=== PATIENT | female | born 1985 | race Native Hawaiian/Other Pacific Islander ===

== ENCOUNTER 2023-01-01 11:27 | Outpatient (AMB) | payer OTHER, SELFPAY ==
--- NOTE | 2023-01-01 11:42 | A.OFFPC_ITS ---
Vital Signs 01/01/23 11:44 Height 5 ft 1 in Weight 201 lb 8 oz BMI 38.1 BP 140/80 H Blood Pressure Location Lt brachial Position Sitting Pulse 86 Pulse Source Pulse Oximeter Pulse Oximetry (%) 98 Intake Visit Reasons: pt discharged from [facility], , high BP Intake Note: pt is here for f/u on high bood pressure readings, was seen at [facility] patient is , patient had blood work done today prior to visit. patient also would like for ears to be checked, states she been having issues and pain in both ears Materials Scheduler Required: No Accompanied by: Self / Same As Patient Allergies No Known Allergies Allergy (Verified 01/01/23 11:42) Tobacco use date assessed: 01/01/23 Dental Screening Dental Screen Date: 01/01/23 Did you have a dental visit in the last 12 months?: Yes Did you have a dental problem in the last 6 months where you did not have access to dental care?: No Was dental information given to patient?: Patient has dentist HPI HPI Comments History of Present Illness Details 37-year-old female past medical history significant for hypertension. Patient of Dr. Muro last seen few years. Patient presents today for ER follow-up from [facility] for elevated blood pressure in the 150s stock likely in a positive HCG 686. Patient was restarted on her labetalol 100 mg b.i.d. she was on in the past however she states she ran out out of at home while ago. Patient currently following with [facility], was prescribed pre- sunil vitmains just has to pick them up at the pharmacy. Blood pressure remains elevated today 140/80. Patient denies any headaches, vision changes. Denies chest pain, palpitations shortness of breath syncope. [facility] Surgical History (Updated 01/01/23 @ 11:47 by Gilbert Vargas CMA) Hx of section Family History (Updated 01/01/23 @ 11:48 by Gilbert Vargas CMA) Father Alzheimer disease Mother Heart problem High blood pressure Social History (Updated 01/01/23 @ 11:48 by Gilbert Vargas CMA) Housing: House Alcohol intake: never Patient Tobacco Use Status: Never used Tobacco Tobacco use type: Cigarette e-Cigarette/Vaping Use: Never Used service: No Current occupational status: unemployed Current occupational exposures/hazards: No Cognitive needs: No Hearing needs: No Vision needs: No Review of Systems Const Denies chills, Denies fatigue, Denies fever(s) and Denies poor appetite Eyes Denies no additional complaints ENT Reports Normal hearing present Card Denies chest pain, Denies syncope, Denies rapid heart rate and Denies dyspnea Resp Denies cough and Denies dyspnea GI Denies change in stool character, Denies constipation, Denies diarrhea, Denies nausea and Denies vomiting Denies urinary frequency, Denies dysuria and Denies urinary urgency Neuro Reports Normal hearing present, Denies confusion and Denies syncope Psych Denies confusion Endo Denies fatigue Physical exam (Primary Care) Vital Signs: Last Vital Signs Pulse 86 01/01/23 11:44 BP 140/80 H 01/01/23 11:44 Pulse Ox 98 01/01/23 11:44 BMI result Body Mass Index 38.1 Tobacco/Smoking Status: Tobacco use Status Tobacco use date assessed 01/01/23 01/01/23 11:51 Patient Tobacco Use Status Never used Tobacco 01/01/23 11:51 Tobacco use type Cigarette 01/01/23 11:51 e-Cigarette/Vaping Use Never Used 01/01/23 11:51 Const General: No confusion Orientation/consciousness: No confusion Neuro General: No confusion Cranial nerves: Yes Normal hearing present Assessment and Plan Assessment & Plan (1) Hypertension: Code(s): I10 - Essential (primary) hypertension Plan: Continue on labetalol 100 mg b.i.d.. Refill sent to patient's pharmacy for this Patient advised to follow low-salt diet and exercise Follow-up in 3 months for blood pressure recheck. Signs and symptoms of elevated blood pressure review with patient. 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 Eight a well-balanced diet and drink plenty of water. Continue to follow with [facility] Medications: New labetalol 100 mg PO BID 60 tabs 3RF I10 - Essential (primary) hypertension Coding Level of Care Code Est Pt Level 3 (20756) Diagnoses Hypertension I10 Z34.90
[2023-01-01 11:44] VITALS: BP 140/80; PULSE 86; O2SAT 98; BMI 38.1
== END 2023-01-01 12:19 | disposition home or self-care (01) ==
PROVIDERS: PCP Internal Medicine; Visit Provider Nurse Practitioner Family
DX: I10 Essential (primary) hypertension (principal); Z33.1 Pregnant state, incidental
CPT/HCPCS: 99213

== ENCOUNTER 2023-05-21 15:32 | Outpatient (AMB) | payer OTHER, SELFPAY ==
[2023-05-21 15:36] VITALS: BP 146/82; PULSE 110; O2SAT 97; BMI 41.6
--- NOTE | 2023-05-21 15:36 | MHC.PC.OV ---
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, + NEEDS PHQ9+THRIVE Water Conservation Specialist Required: No Allergies No Known Allergies Allergy (Verified 05/21/23 15:52) Medication List - Last Reconciled 05/21/23 [address] DRALIN Escalera labetalol 100 mg PO BID -yfin fum-folic ac-om3 28 mg iron- 800 mcg (One A Day Women's DHA) pkgs PO Tobacco use date assessed: 05/21/23 Dental Screening Dental Screen Date: 05/21/23 Did you have a dental visit in the last 12 months?: No Did you have a dental problem in the last 6 months where you did not have access to dental care?: No HPI 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 Muro, patient also saw WILDLAND FIRE OPERATIONS SPECIALIST in the office couple months ago for hospital discharge follow-up. Medical history significant for hypertension, currently -26 weeks with baby boy-followed by [facility] - due date 09/01/2023, gestational diabetes- monitoring blood sugars at home-currently not on insulin - see air conditioning insulation installer. No shortness of breath or chest pain. Denies concerns. PFSH Surgical History Hx of section Family History Father Alzheimer disease Mother Heart problem High blood pressure Social History Housing: House Alcohol intake: never Patient Tobacco Use Status: Never used Tobacco Tobacco use type: Cigarette e-Cigarette/Vaping Use: Never Used service: No Current occupational status: unemployed Current occupational exposures/hazards: No Cognitive needs: No Hearing needs: No Vision needs: No Questionnaire PHQ-9 Over the last 2 weeks, how often have you been bothered by any of the following problems? 1. Little interest or pleasure in doing things: not at all 2. Feeling down, depressed, or hopeless: not at all 3. Trouble falling or staying asleep, or sleeping too much: not at all 4. Feeling tired or having little energy: not at all 5. Poor appetite or overeating: not at all 6. Feeling bad about yourself - or that you are a failure or have let yourself or your family down: not at all 7. Trouble concentrating on things, such as reading the newspaper or watching television: not at all 8. Moving or speaking so slowly that other people could have noticed. Or the opposite - being so fidgety or restless that you have been moving around a lot more than usual: not at all 9. Thoughts that you would be better off or of hurting yourself in some way: not at all Total score: 0 Depression Screening Interpretation: Negative Depression Screening Done: Yes 85403 - PHQ-9 Billing: Yes Source: Developed by Drs. Silvestre Meier, Julieta Sapp, Ran Bolivar and colleagues, with an educational ismael from [employer]. Thrive Questionnaire Date Thrive assessed: 05/21/23 I am a: Patient What is your living situation today?: I have a steady place to live Within the past 12 months, did the food you bought not last and you didn't have the money to get more?: Never true Within the past 12 months, did you worry whether your food would run out before you got money to buy more?: Never true Do you have trouble paying for medicines?: No Do you have trouble getting transportation to medical appointments?: No Do you have trouble paying your heating and electricity bill?: No Do you have trouble taking care of your child, family member or friend?: No Do you have trouble with day-to-day activities such as bathing, preparing meals, shopping, managing finances, etc.?: No Are you currently unemployed and looking for a job?: No Are you interested in more education?: No Currently or been in a relationship where the following occur: no concerns reported AUDIT C Alcohol Use Questionnaire (AUDIT-C) 1. How often do you have a drink containing alcohol?: Never 3. How often do you have six or more drinks on one occasion?: Never Total Score: 0 Score Reviewed/Action Taken: No ENZO-7 AMB Questionnaire ENZO-7 Date ENZO - 7 assessed: 05/21/23 Feeling nervous, anxious, or on edge: 0 = Not at all Not being able to stop or control worryin = Not at all Worrying too much about different things: 0 = Not at all Trouble relaxin = Not at all Being so restless that it is hard to sit still: 0 = Not at all Becoming easily annoyed or irritable: 0 = Not at all Feeling afraid as if something awful might happen: 0 = Not at all Total ENZO-7 score (0-4 normal; 5-9 mild; 10-14 moderate; 15-21 severe): 0 Source: Developed by Drs. Silvestre Meier, Julieta Sapp, Ran Bolivar and colleagues, with an educational ismael from [employer]. ENZO-7 Assessment Billing ENZO-7 Assessment Tool: ENZO-7 Assessment 06275 Review of Systems Const Denies body aches, Denies chills, Denies fever(s) and Denies headache(s) Eyes Denies change in vision ENT Denies dizziness, Denies otalgia, Denies headache(s), Denies nasal discharge, Denies sinus pain and Denies sore throat Card Denies chest pain, Denies edema, Denies lightheadedness and Denies dyspnea Resp Denies cough, Denies dyspnea and Denies wheezing GI Denies abdominal pain, Denies constipation, Denies diarrhea, Denies nausea and Denies vomiting Denies dysuria Musc Denies myalgias Skin/Breast Denies rash Neuro Denies dizziness and Denies headache(s) Aller/Immun Denies wheezing Physical exam (Primary Care) Vital Signs: Last Vital Signs Pulse 104 H 05/21/23 16:01 BP 136/82 05/21/23 16:01 Pulse Ox 97 05/21/23 15:36 Oxygen Delivery Method Room Air 05/21/23 15:36 BMI result Body Mass Index 41.6 Tobacco/Smoking Status: Tobacco use Status Tobacco use date assessed 05/21/23 05/21/23 15:37 Patient Tobacco Use Status Never used Tobacco 05/21/23 15:37 Tobacco use type Cigarette 05/21/23 15:37 e-Cigarette/Vaping Use Never Used 05/21/23 15:37 PHQ-9: PHQ-9 Score PHQ-9: Total score 0 05/21/23 15:54 Depression Screening Interpretation: Negative Thrive Assessment: Date of Thrive Assessment Date Thrive assessed 05/21/23 05/21/23 15:37 Currently or been in a relationship where the following occur: no concerns reported Const General: cooperative and no acute distress Orientation/consciousness: patient oriented x3 HENMT Head: Yes normocephalic and Yes atraumatic Ears: TM's normal bilaterally Face and sinus: Yes sinuses nontender Mouth: oropharynx normal and moist mucous membranes Throat: Yes posterior oropharynx normal Eyes General: appearance normal, both eyes and all related structures Pupils: Equal, round and reactive pupils present EOM: EOMs intact bilaterally Neck Neck: Yes normal visual inspection, Yes full ROM and Yes no lymphadenopathy Thyroid: Thyroid normal Resp Effort & Inspection: normal respiratory effort and able to speak in complete sentences Auscultation: clear to auscultation bilaterally, no crackles, no rales, no rhonchi and no wheezes Cardio Rate: regular rate Rhythm: regular rhythm Heart sounds: S1 normal heart sound present, S2 normal heart sound present and no murmurs GI Auscultation: normal bowel sounds General: No CVA tenderness Back/Spine/Pelvis Back: No CVA tenderness Skin General skin exam: no rashes or lesions noted Neuro General: patient oriented x3 Cranial nerves: Yes Equal, round and reactive pupils present Gait exam (Neuro): Normal gait present Extrem General: Yes full ROM and No edema Assessment and Plan Assessment & Plan (1) Gestational diabetes: Code(s): O24.419 - Gestational diabetes mellitus in , unspecified control Plan: Continue to follow-up with air conditioning insulation installer Currently not on insulin-managed by OBGYN (2) Encounter to establish care: Code(s): Z76.89 - Persons encountering health services in other specified circumstances Plan: Patient presents to establish care, blood work ordered (3) : Code(s): Z34.90 - Encounter for supervision of normal , unspecified, unspecified trimester Plan: 26 weeks with baby boy due date 09/01/2023 Followed by [facility] (4) Hypertension: Code(s): I10 - Essential (primary) hypertension Plan: Goal BP equal or less than 140/90 Continue labetalol b.i.d. Plan Follow-up in 3 months Orders: Orders Comprehensive Met. Panel Today I10 - Essential (primary) hypertension TSH reflex Free T4 Today I10 - Essential (primary) hypertension Complete Blood Count Auto Diff Today I10 - Essential (primary) hypertension Hemoglobin A1c Today O24.419 - Gestational diabetes mellitus in , unspecified control Medications: Refilled labetalol 100 mg PO BID 60 tabs 3RF I10 - Essential (primary) hypertension Coding Level of Care Code New Pt Level 3 (44241) Diagnoses Gestational diabetes O24.419 Encounter to establish care Z76.89 Z34.90 Hypertension I10 Additional Codes ENZO-7 Assessment Billing - ENZO-7 Assessment Tool: ENZO-7 Assessment 02288 ([id number])
[2023-05-21 16:01] VITALS: BP 136/82; PULSE 104
== END 2023-05-21 16:08 | disposition home or self-care (01) ==
PROVIDERS: PCP Internal Medicine; Visit Provider Nurse Practitioner Family
DX: O24.419 Gestational diabetes mellitus in pregnancy, unspecified control (principal); Z76.89 Persons encountering health services in other specified circumstances; Z34.90 Encounter for supervision of normal pregnancy, unspecified, unspecified trimester; I10 Essential (primary) hypertension
CPT/HCPCS: 99203

== ENCOUNTER 2023-08-24 16:36 | Outpatient (AMB) | payer OTHER, SELFPAY ==
[2023-08-24 16:37] VITALS: BP 168/102; PULSE 89; O2SAT 99; BMI 41.9
--- NOTE | 2023-08-24 16:37 | MHC.PC.OV ---
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 Required: No Allergies No Known Allergies Allergy (Verified 08/25/23 05:43) Medication List - Last Reconciled 08/25/23 by Peng Muro MD amlodipine 5 mg PO DAILY 30 days labetalol 200 mg PO BID [id number] fum-folic ac-om3 28 mg iron- 800 mcg (One A Day Women's DHA) pkgs PO Tobacco use date assessed: 08/24/23 Dental Screening Dental Screen Date: 08/24/23 HPI F/u on HTN HPI Details Patient comes in today for follow up of her high blood pressure She was last seen by me back on 10/12/2015 although she has been in here a couple of times over the past year and seen by our nurse practitioners Patient apparently developed gestational diabetes and hypertension during her last and currently remains on Labetalol 200 mg BID for her blood pressure States that she did not develop preeclampsia or eclampsia during her over the past year Her original due date was on September 01, 2023 but she ended up delivering her baby earlier by repeat a couple of weeks ago on 08/11/2023 States that her baby boy is healthy Notes that her blood pressure remains elevated even after her delivery although her blood sugar appears to have come back down to normal States that she used to take insulin for gestational diabetes when she was but has not taken it after she delivered her baby a couple of weeks ago States that she presently feels okay She denies any headaches or dizziness Denies any chest pains, no shortness of breath No nausea /vomiting, no abdominal pain No change in bowel habits noted States that she is currently not and has no plans to do so [facility] Medical History (Updated 08/25/23 @ 05:58 by Peng Muro MD) Morbid obesity with BMI of 40.0-44.9, adult Essential hypertension Gestational diabetes Surgical History (Updated 08/25/23 @ 06:01 by Peng Muro MD) S/P LEEP Hx of section Family History Father Alzheimer disease Mother Heart problem High blood pressure Social History Housing: House Alcohol intake: never Patient Tobacco Use Status: Never used Tobacco Tobacco use type: Cigarette e-Cigarette/Vaping Use: Never Used service: No Current occupational status: unemployed Current occupational exposures/hazards: No Cognitive needs: No Hearing needs: No Vision needs: No Questionnaire PHQ-9 Over the last 2 weeks, how often have you been bothered by any of the following problems? 1. Little interest or pleasure in doing things: not at all 2. Feeling down, depressed, or hopeless: not at all 3. Trouble falling or staying asleep, or sleeping too much: not at all 4. Feeling tired or having little energy: not at all 5. Poor appetite or overeating: not at all 6. Feeling bad about yourself - or that you are a failure or have let yourself or your family down: not at all 7. Trouble concentrating on things, such as reading the newspaper or watching television: not at all 8. Moving or speaking so slowly that other people could have noticed. Or the opposite - being so fidgety or restless that you have been moving around a lot more than usual: not at all 9. Thoughts that you would be better off or of hurting yourself in some way: not at all Total score: 0 Depression Screening Interpretation: Negative Depression Screening Done: Yes 22538 - PHQ-9 Billing: Yes Source: Developed by Drs. Silvestre Meier, Julieta Sapp, Ran Bolivar and colleagues, with an educational ismael from [employer]. Thrive Questionnaire Date Thrive assessed: 08/24/23 I am a: Patient What is your living situation today?: I have a steady place to live Within the past 12 months, did the food you bought not last and you didn't have the money to get more?: Never true Within the past 12 months, did you worry whether your food would run out before you got money to buy more?: Never true Do you have trouble paying for medicines?: No Do you have trouble getting transportation to medical appointments?: No Do you have trouble paying your heating and electricity bill?: No Do you have trouble taking care of your child, family member or friend?: No Do you have trouble with day-to-day activities such as bathing, preparing meals, shopping, managing finances, etc.?: No Are you currently unemployed and looking for a job?: No Are you interested in more education?: No Currently or been in a relationship where the following occur: no concerns reported THRIVE Score: 0 AUDIT C Alcohol Use Questionnaire (AUDIT-C) 1. How often do you have a drink containing alcohol?: Never 3. How often do you have six or more drinks on one occasion?: Never Total Score: 0 Score Reviewed/Action Taken: Yes ENZO-7 AMB Questionnaire ENZO-7 Date ENZO - 7 assessed: 08/24/23 Source: Developed by Drs. Silvestre Meier, Julieta Sapp, Ran Bolivar and colleagues, with an educational ismael from [employer]. Review of Systems Const Denies chills, Denies fatigue, Denies fever(s) and Denies headache(s) ENT Denies dysphagia, Denies dizziness, Denies otalgia, Denies headache(s), Denies neck pain, Denies odynophagia and Denies sore throat Card Denies chest pain, Denies palpitations and Denies dyspnea Resp Denies cough and Denies dyspnea GI Denies abdominal pain, Denies constipation, Denies dysphagia, Denies heartburn, Denies diarrhea, Denies nausea, Denies odynophagia and Denies vomiting Denies difficulty voiding, Denies nocturia, Denies dysuria and Denies urinary urgency Musc Denies back pain and Denies neck pain Skin/Breast Denies rash Neuro Denies dizziness and Denies headache(s) Endo Denies fatigue and Denies palpitations Physical exam (Primary Care) Vital Signs: Last Vital Signs Pulse 89 08/24/23 16:37 BP 168/102 H 08/24/23 16:37 Pulse Ox 99 08/24/23 16:37 Oxygen Delivery Method Room Air 08/24/23 16:37 BMI result Body Mass Index 41.9 Tobacco/Smoking Status: Tobacco use Status Tobacco use date assessed 08/24/23 08/24/23 16:43 Patient Tobacco Use Status Never used Tobacco 08/24/23 16:43 Tobacco use type Cigarette 08/24/23 16:43 e-Cigarette/Vaping Use Never Used 08/24/23 16:43 Depression Screening Interpretation: Negative Thrive Assessment: Date of Thrive Assessment Date Thrive assessed 08/24/23 08/24/23 16:43 Currently or been in a relationship where the following occur: no concerns reported Const General: no acute distress and alert HENMT Ears: TM's normal bilaterally and EAC's normal Throat: Yes posterior oropharynx normal and Yes tonsils normal (no TP congestion) Neck Neck: Yes no lymphadenopathy and Yes supple Thyroid: Thyroid normal Resp Auscultation: clear to auscultation bilaterally, no rales and no wheezes Cardio Rate: regular rate Rhythm: regular rhythm Heart sounds: no murmurs GI Palpation (GI): Soft to palpation and nontender Auscultation: normal bowel sounds General: Yes no CVA tenderness Back/Spine/Pelvis Back: no CVA tenderness Skin Rashes: no rashes Extrem General: Yes no clubbing, cyanosis or edema Assessment and Plan Assessment & Plan (1) Essential hypertension: Code(s): I10 - Essential (primary) hypertension Plan: Reinforced low sodium diet - goal is systolic BP of 120 mm or less Continue Labetalol 200 mg BID - Rx refilled As patient currently has no plans to breast feed, will go ahead and start her additionally on Amlodipine 5 mg QD Will also send her for some labs GAYLE for further evaluation (2) Gestational diabetes: Code(s): O24.419 - Gestational diabetes mellitus in , unspecified control Qualifiers: Gestational diabetes mellitus control: insulin-controlled Trimester: unspecified trimester Qualified Code(s): O24.414 - Gestational diabetes mellitus in , insulin controlled Plan: Patient states that she used to take insulin for her diabetes during her most recent but notes that her blood sugar is back to normal following her delivery and she no longer has to take insulin at this time Reinforced diabetic diet Will send her for repeat FBS and recheck her HgbA1c for follow up (3) Morbid obesity with BMI of 40.0-44.9, adult: Code(s): E66.01 - Morbid (severe) obesity due to excess calories; Z68.41 - Body mass index [BMI] 40.0-44.9, adult Plan: Reinforced diet/exercise as tolerated /lose weight Plan Follow up in 1 month Orders: Orders Complete Blood Count Auto Diff 08/24/23 D64.9 - Anemia, unspecified, I10 - Essential (primary) hypertension TSH reflex Free T4 08/24/23 E78.00 - Pure hypercholesterolemia, unspecified, I10 - Essential (primary) hypertension Vitamin D 25-OH Total 08/24/23 E55.9 - Vitamin D deficiency, unspecified, I10 - Essential (primary) hypertension Comprehensive [place]. Panel Fast 08/24/23 I10 - Essential (primary) hypertension Lipid Panel 08/24/23 E78.00 - Pure hypercholesterolemia, unspecified, I10 - Essential (primary) hypertension UA CC w/rflx Micro + Cult 08/24/23 I10 - Essential (primary) hypertension, R30.0 - Dysuria Metanephrines, Random Urine 08/24/23 I10 - Essential (primary) hypertension Hemoglobin A1c 08/24/23 O24.419 - Gestational diabetes mellitus in , unspecified control Medications: New amlodipine 5 mg PO DAILY 30 tabs 1RF 30 days Changed From labetalol 100 mg PO BID 60 tabs 3RF I10 - Essential (primary) hypertension To labetalol 200 mg PO BID I10 - Essential (primary) hypertension Coding Level of Care Code Est Pt Level 4 (22572) Diagnoses Essential hypertension I10 Insulin controlled gestational diabetes mellitus (GDM) during , antepartum O24.414 Gestational diabetes mellitus control: insulin-controlled Trimester: unspecified trimester Morbid obesity with BMI of 40.0-44.9, adult E66.01; Z68.41
== END 2023-08-24 17:14 | disposition home or self-care (01) ==
PROVIDERS: PCP Internal Medicine; Visit Provider Internal Medicine
DX: I10 Essential (primary) hypertension (principal); O24.414 Gestational diabetes mellitus in pregnancy, insulin controlled; E66.01 Morbid (severe) obesity due to excess calories; Z68.41 Body mass index [BMI] 40.0-44.9, adult
CPT/HCPCS: 99214

== ENCOUNTER 2023-08-25 09:17 | Outpatient (REF) | payer OTHER, SELFPAY ==
[2023-08-25 09:45] LABS: MANUAL DIFF FLAG NO
[2023-08-25 10:04] LABS: Basophils Percent Auto 0.4 % (0-2); Eosinophils Absolute Auto 0.3 X10*3/uL (0.0-0.4); Eosinophils Percent Auto 2.7 % (0-4); Hematocrit 39.9 % (37.0-47.0); Hemoglobin 12.4 g/dl (12.0-16.0); Imm Gran Abs Auto 0.04 X10*3/uL (0.00-0.03); Imm Gran Pct Auto 0.4 % (0.0-0.4); Lymphocytes Absolute Auto 1.9 X10*3/uL (1.2-4.9); Lymphocytes Percent Auto 19.8 % (20-40); Mean Corpuscular HGB Conc 31.1 g/dl (31.0-35.0); Mean Corpuscular Hemoglobin 27.3 pg (27.0-33.0); Mean Corpuscular Volume 87.9 fL (80.0-98.0); Mean Platelet Volume 9.1 fL (9.4-12.3); Monocytes Absolute Auto 0.5 X10*3/uL (0.1-1.2); Monocytes Percent Auto 5.2 % (2-11); Neutrophils Absolute Auto 6.8 x10*3/uL (2.0-8.3); Neutrophils Percent Auto 71.5 % (45-73); Platelet Count 537 X10*3/uL (160-400); Red Blood Count 4.54 X10*6/uL (4.20-5.50); Red Cell Distribution Width 14.2 % (11.0-16.0); White Blood Count 9.5 X10*3/uL (4.8-10.8)
[2023-08-25 10:12] LABS: Estimated Average Glucose 128 mg/dL; Hemoglobin A1c % 6.1 % (<6.0)
[2023-08-25 10:17] LABS: Appearance Urine Clear; Color Urine Yellow; Glucose Urine UA Negative (Negative); Leukocyte Esterase Urine Negative (Negative); Nitrite Urine Negative (Negative); PH 6.5 (5.0-9.0); Specific Gravity - Urine 1.015 (1.005-1.025); UMIC TRIGGER UACC YES; Urine Blood Large (3+) (Negative); Urine Ketones Negative (Negative); Urine Protein Negative (Neg-Trace)
[2023-08-25 10:38] LABS: Bacteria Urine 1+ (None Seen); Hyaline Casts Urine 0-2 /LPF (0-2); RBC Urine 0-2 /HPF (0-2); Squamous Epithelial Cell Urine 0-2 /HPF (0-2); WBC Urine 0-5 /HPF (0-5)
[2023-08-25 10:43] LABS: Alanine Aminotransferase 28 U/L (0-31); Albumin Level 3.7 g/dL (3.5-5.0); Alkaline Phosphatase 104 U/L (39-117); Anion Gap 10 (12-20); Aspartate Amino Transferase 16 U/L (5-31); Bilirubin Total 0.3 mg/dL (0.0-1.0); Blood Urea Nitrogen 13 mg/dL (9-16); Calcium 8.7 mg/dL (8.4-10.2); Carbon Dioxide 27 mmol/L (22-29); Chloride 108 mmol/L (96-108); Cholesterol 182 mg/dL (<200); Estimated Glomerular Filt Rate > 60; Glucose Fasting 93 mg/dL (60-99); HDL Cholesterol 39 mg/dL (>40); LDL Cholesterol Calculated 132 mg/dL (<100); Sodium 141 mmol/L (135-145); Total Protein 6.6 g/dL (6.5-8.0); Triglycerides 56 mg/dL (<150)
[2023-08-25 10:58] LABS: TSH reflex Free T4 1.01 uIU/mL (0.32-4.0); Vitamin D 25-OH Total 14.7 ng/mL (>30)
[2023-09-02 23:54] LABS: Creatinine Random Urine 97 mg/dL (20-275); Metanephrine, Free Rand Ur 48 mcg/g cr (32-134); Normetanephrine, Free Rand Ur 289 mcg/g cr (67-390); Total Metanephrine, Free RU 337 mcg/g cr (94-445)
== END 2023-08-25 09:18 | disposition home or self-care (01) ==
LOC: HO.LAB 09:17
PROVIDERS: PCP Internal Medicine; Visit Provider Internal Medicine
DX: D64.9 Anemia, unspecified (principal); I10 Essential (primary) hypertension; E55.9 Vitamin D deficiency, unspecified; E78.00 Pure hypercholesterolemia, unspecified
CPT/HCPCS: 36415; 80053; 80061; 81001; 82306; 83036; 83835; 84443; 85025

== ENCOUNTER 2024-04-26 10:24 | Outpatient (AMB) | payer OTHER, SELFPAY ==
[2024-04-26 10:27] VITALS: BP 160/110; PULSE 110; O2SAT 98; BMI 39.1
--- NOTE | 2024-04-26 10:27 | A.OFFPC_ITS ---
Vital Signs 04/26/24 10:27 Height 5 ft 1 in Weight 207 lb 0.8 oz BMI 39.1 BP 160/110 H Blood Pressure Location Lt brachial Position Sitting Pulse 110 H Pulse Source Pulse Oximeter Pulse Oximetry (%) 98 Oxygen Delivery Method Room Air Intake Visit Reasons: Elenita 04/20 Pulmonary nodule & high bp Intake Note: Patient is here to follow-up after a visit the emergency department at [facility] on 04/20/24 Allergies No Known Allergies Allergy (Verified 04/26/24 10:33) Tobacco use date assessed: 08/24/23 Dental Screening Dental Screen Date: 08/24/23 HPI HPI Comments History of Present Illness Details 39 y/o female patient who [facility] for EDF. She was admitted at [facility] on 04/20/24 severe abdominal pain. She was found to have UTI which was treated with Abx. she was discharged home same day on stable condition. She continues to have abdominal pain associated with chills, nausea but no vomiting. Abdominal CT scan was done in the ED ([facility] ED) which was unremarkable. She does admit to unhealthy diet, fast foods. She has h/o HTN and has not been taking her medications for the past 8 months. She reports that she has been trying to call the office for medication refills with no answer. She was prescribed Labetalol and Amlodipine during (gave 8 months ago) and was supposed to continue taking them. Reports that she has notice her BP readings elevated at home, and now has headaches, constantly. While in hospital, she had chest Xray that showed a Lung Nodule. Pt was instructed to have CT scan of chest by PCP. [facility] Medical History (Updated 04/26/24 @ 12:42 by Germaine Hooker NP) Morbid obesity with BMI of 40.0-44.9, adult Essential hypertension Gestational diabetes Surgical History (Updated 08/25/23 @ 06:01 by Peng Muro MD) S/P LEEP Hx of section Family History Father Alzheimer disease Mother Heart problem High blood pressure Social History Housing: House Alcohol intake: never Patient Tobacco Use Status: Never used Tobacco Tobacco use type: Cigarette e-Cigarette/Vaping Use: Never Used service: No Current occupational status: unemployed Current occupational exposures/hazards: No Cognitive needs: No Hearing needs: No Vision needs: No Questionnaire Thrive Questionnaire Date Thrive assessed: 08/24/23 AUDIT C Alcohol Use Questionnaire (AUDIT-C) 1. How often do you have a drink containing alcohol?: Never 3. How often do you have six or more drinks on one occasion?: Never Total Score: 0 Score Reviewed/Action Taken: Yes ENZO-7 AMB Questionnaire ENZO-7 Date ENZO - 7 assessed: 08/24/23 Source: Developed by Drs. Silvestre Meier, Julieta Sapp, Ran Bolivar and colleagues, with an educational ismael from [employer]. Review of Systems Const All systems reviewed & are unremarkable except as noted in HPI and below Physical exam (Primary Care) Vital Signs: Last Vital Signs Pulse 110 H 04/26/24 10:27 BP 160/110 H 04/26/24 10:27 Pulse Ox 98 04/26/24 10:27 Oxygen Delivery Method Room Air 04/26/24 10:27 BMI result Body Mass Index 39.1 Tobacco/Smoking Status: Tobacco use Status Tobacco use date assessed 08/24/23 04/26/24 10:28 Patient Tobacco Use Status Never used Tobacco 04/26/24 10:28 Tobacco use type Cigarette 04/26/24 10:28 e-Cigarette/Vaping Use Never Used 04/26/24 10:28 Thrive Assessment: Date of Thrive Assessment Date Thrive assessed 08/24/23 04/26/24 10:28 Const General: cooperative and no acute distress Nutritional Appearance: obese Orientation/consciousness: patient oriented x3 Resp Effort & Inspection: normal respiratory effort and able to speak in complete sentences Auscultation: clear to auscultation bilaterally Cardio Heart sounds: S1 normal heart sound present and S2 normal heart sound present GI Inspection: Yes Abdominal panniculus present and Yes obesity Palpation (GI): Soft to palpation, not firm, Tenderness to palpation present (GI) in the epigastrum, no guarding, not rigid and No hepatosplenomegaly present Percussion: Yes normal to percussion Auscultation: normal bowel sounds General: Yes no CVA tenderness Back/Spine/Pelvis Back: no CVA tenderness Skin General skin exam: no rashes or lesions noted Neuro General: patient oriented x3 and gait normal Psych Speech and movement: Normal speech and movement present Coding Level of Care Code Est Pt Level 4 (58544) Diagnoses Epigastric pain R10.13 Abdominal location: epigastric Primary hypertension I10 Hypertension type: primary hypertension Lung nodule seen on imaging study R91.1 Time Spent (min) 20 Assessment & Plan Assessment & Plan (1) Abdominal pain: Code(s): R10.9 - Unspecified abdominal pain Qualifiers: Abdominal location: epigastric Qualified Code(s): R10.13 - Epigastric pain Plan: DDx's: H.Pylori, vs GERD. Unable to order Breath test at the clinic today. Will tx the symptoms with HPIs Advised healthy diet, and weight loss UTI was treated with Abx, and she denies Urinary or vaginal symptoms. unlikely, had Tubal. (2) Hypertension: Code(s): I10 - Essential (primary) hypertension Category: Medical Qualifiers: Hypertension type: primary hypertension Qualified Code(s): I10 - Essential (primary) hypertension Plan: D/C the other medications. Started her on HCTZ, discussed medication side effects. Will have Pt f/u with Nurse Navigator in a week. (3) Lung nodule seen on imaging study: Code(s): R91.1 - Solitary pulmonary nodule Plan: Will order CT scan Orders: Orders CT chest wo IV con Today R91.1 - Solitary pulmonary nodule H. pylori Culture Today R10.9 - Unspecified abdominal pain Medications: New hydrochlorothiazide 25 mg PO DAILY 30 tabs 1RF I10 - Essential (primary) hypertension famotidine 20 mg PO BEDTIME 30 tabs 1RF R10.9 - Unspecified abdominal pain omeprazole 20 mg PO DAILY 30 caps 1RF R10.9 - Unspecified abdominal pain Discontinued amlodipine Discontinued Reason: Patient no longer taking 5 mg PO DAILY 30 days 30 tabs 1RF
== END 2024-04-26 11:01 | disposition home or self-care (01) ==
LOC: HO.HMCH 10:25
PROVIDERS: PCP Internal Medicine; Visit Provider Nurse Practitioner Family
DX: R10.13 Epigastric pain (principal); I10 Essential (primary) hypertension; R91.1 Solitary pulmonary nodule

== ENCOUNTER → 2024-04-26 10:24 | Outpatient (BNVA) | payer OTHER, SELFPAY | PROVIDERS: PCP Internal Medicine; Visit Provider Nurse Practitioner Family | DX: R10.13 Epigastric pain (principal); I10 Essential (primary) hypertension; R91.1 Solitary pulmonary nodule | CPT/HCPCS: 99212 ==

== ENCOUNTER 2024-05-17 16:16 | Emergency (ER) | payer OTHER, SELFPAY ==
--- NOTE | ~2024-05-17 | CT_ITS ---
EXAMINATION: CT ABDOMEN AND PELVIS WITH CONTRAST CLINICAL INFORMATION: Abdominal pain. COMPARISON: None available. TECHNIQUE: Multidetector volumetric images were obtained from the superior aspect of the liver through the pubic symphysis following administration 85 mL of Omnipaque 350 intravenous contrast. Sagittal and coronal reformatted images were obtained on the technologist's workstation. Oral contrast: No This CT examination was performed using dose optimization techniques as appropriate, variously including the following: *Automated exposure control *Adjustment of mA and/or kV according to patient size (this includes techniques or standardized protocols for targeted exams where dose is matched to indication/reason for exam; i.e. extremities or head) *Use of iterative reconstruction technique DLP: 713 mGy-cm FINDINGS: LUNG BASES: The visualized lung bases are unremarkable. LIVER, GALLBLADDER, AND BILIARY TREE: There are 2 small hypodensities right lobe of the liver too small to characterize but likely small cysts. There is no intrahepatic biliary duct dilatation. The gallbladder is unremarkable with no evidence of radiopaque gallstones, gallbladder wall thickening, or obvious pericholecystic inflammatory changes. PANCREAS: Unremarkable. SPLEEN: Unremarkable. ADRENAL GLANDS: Unremarkable. KIDNEYS AND URETERS: The kidneys are normal in size, shape, and attenuation. No hydronephrosis, hydroureter, or calculi seen. No perinephric stranding. BLADDER: Unremarkable. GASTROINTESTINAL TRACT: The small and large bowel are unremarkable. The appendix is unremarkable. ABDOMINAL WALL: No significant hernia is appreciated. LYMPH NODES: Normal. VASCULAR: Unremarkable. PELVIC VISCERA: Unremarkable. OSSEOUS STRUCTURES: Unremarkable. CT/CT abdomen pelvis w IV con IMPRESSION: No evidence for acute intra-abdominal process. Fleischner guidelines were followed. Electronically signed by: Jeyson Dodd MD 05/18/2024 01:41 AM EST
[2024-05-17 16:22] VITALS: BP 129/82; PULSE 104; RESP 16; TEMP 37.2; O2SAT 100; BMI 33.6
--- NOTE | 2024-05-17 16:25 | ED_ITS ---
HPI - General Adult General Chief complaint: Abdominal Pain Stated complaint: Dry heaving, sweating Time Seen by Provider: 05/17/24 21:04 Source: patient and old records reviewed Mode of arrival: ambulatory Limitations: no limitations History of Present Illness ED Provider: NEYMAR GLORIA narrative: 39 yo female with PMH of tubal ligation, HTN, notes one month on and off of upper abdominal pain that radiates around both flanks with n/v. She notes she went to [facility] recently but they told her after US she had small ovarian cyst. She was sent home with capsacin cream. She notes she still has bouts of pain and n/v. She has no known triggers. No fevers. She has been having pain n/v since Thursday with this episode. She denies THC use to me. MD complaint: abd pain n/v Onset (ago): month(s) (1) Location: abdomen Radiation: back Severity: severe Quality: stabbing Pain Consistency: intermittent Relieving factors: none Exacerbating factors: eating Associated symptoms: loss of appetite, malaise and nausea/vomiting Treatments prior to arrival: none Related Data Home Medications ?Medication ?Instructions ?Recorded ?Confirmed vits 75-iron 28 mg-folic pkg PO 05/21/23 08/25/23 acid 800 mcg-omega-3 oral combo pack (One A Day Women's DHA) Previous Rx's ?Medication ?Instructions ?Recorded famotidine 20 mg tablet 20 mg PO BEDTIME #90 tabs 04/26/24 hydrochlorothiazide 25 mg tablet 25 mg PO DAILY #30 tabs 04/26/24 omeprazole 20 mg capsule,delayed 20 mg PO DAILY #30 caps 04/26/24 release metoclopramide HCl 10 mg tablet 10 mg PO Q6H PRN nausea and 05/18/24 (Reglan) vomiting #20 tabs ondansetron 4 mg disintegrating 4 mg PO Q8H PRN nausea and 05/18/24 tablet vomiting #20 tabs Allergies Allergy/AdvReac Type Severity Reaction Status Date / Time No Known Allergies Allergy Verified 05/17/24 16:27 Review of Systems 2 Review of Systems: Constitutional : No Weight loss, No Fever, No Chills ENT/Mouth : No sore throat, No Rhinorrhea Eyes: No Swelling, No Redness Cardiovascular : No Chest Pain, No SOB, NoEdema Respiratory : No Cough, No Sputum, No Wheezing Gastrointestinal : Positive Nausea, Positive Vomiting, no Diarrhea, positive abdominal Pain, No Hematochezia, No Melena Genitourinary : No Dysuria, No Urinary Frequency, No Hematuria, No Urgency Musculoskeletal : No joint pain, No Myalgias, No Joint Swelling Skin : No Skin Lesions, No rash Neuro : No Weakness, No Numbness, No Dizziness, No Headache Psych : No Anxiety/Panic, No Depression All other systems reviewed and are negative. [facility] Past Medical History Attestation statement: The following information was validated with the patient. Source: old records reviewed Medical History Morbid obesity with BMI of 40.0-44.9, adult Essential hypertension Gestational diabetes Surgical History S/P LEEP Hx of section Family History Family History Father Alzheimer disease Mother Heart problem High blood pressure Social History Social History Housing: House Alcohol intake: never Patient Tobacco Use Status: Never used Tobacco Tobacco use type: Cigarette Smoked in Last 30 Days: No e-Cigarette/Vaping Use: Never Used Use of substances other than those prescribed or required for medical reasons: No Advance Directives: No Advance Directives Information Provided: No Patient : No service: No Current occupational status: unemployed Current occupational exposures/hazards: No Cognitive needs: No Hearing needs: No Vision needs: No Physical Exam ED Vital Signs: Vital Signs - 24 hr 05/17/24 16:22 05/17/24 20:28 05/17/24 20:57 Temperature 98.9 F 98.6 F 98.3 F Pulse Rate 104 H 91 101 H Respiratory Rate 16 18 18 Blood Pressure 129/82 149/84 H 143/94 H Pulse Oximetry 100 96 100 Oxygen Delivery Method Room Air Room Air Room Air 05/17/24 21:52 05/17/24 23:05 05/18/24 02:11 Temperature 97.6 F 98.1 F Pulse Rate 96 102 H Respiratory Rate 14 12 14 Blood Pressure 129/87 131/77 Pulse Oximetry 98 98 Oxygen Delivery Method Room Air Room Air 05/18/24 03:43 Temperature 98.0 F Pulse Rate 89 Respiratory Rate 16 Blood Pressure 139/83 Pulse Oximetry 98 Oxygen Delivery Method Room Air BMI result Body Mass Index 33.6 Appearance: Alert. Oriented X3. mild acute distress. Eyes: Pupils equal, round and reactive to light. ENT: Pharynx normal. Neck: Normal inspection. Neck supple. CVS: Normal heart rate and rhythm. Pulses normal. Respiratory: No respiratory distress. Breath sounds normal. Abdomen: Soft and ttp diffusely Skin: Skin warm and dry. pale skin color. Normal skin turgor. Extremities: No lower extremity edema. No calf ttp Neuro: Oriented X 3. No motor deficit. No sensory deficit. Course Course Course Narrative: This is a rapid medical exam performed by Berta Marsh NP: Additional HPI, ROS, PE not included below will be deferred to primary provider. Patient is a 39-year-old female presenting with complaint of nausea, vomiting, chills since Thursday. Feels urge to have BM but is unable. Plan: labs, UA, viral serology Reevaluation(s) Reevaluation #1: nonspecific ST T wave changes no CP/SOB to suggest ACS/VTE Medications Administered Discontinued Medications Generic Name Dose Route Start Last Admin Trade Name Freq PRN Reason Stop Dose Admin Potassium Chloride/Sodium Chloride 40 meq in 1,000 mls @ 250 mls/hr 05/17/24 21:45 05/18/24 03:41 Kcl 40 Meq In 0.9 % Sodium Chl IVCONT Not Given .Q4H SERENITY Iohexol 100 ml 05/17/24 22:31 05/17/24 22:31 Iohexol 350 Mg/Ml 100 Ml Infus..Btl IV 05/17/24 22:32 85 ml ONCE ONE Administration Lorazepam 1 mg 05/17/24 21:41 05/17/24 21:52 Lorazepam 2 Mg/Ml Vial IVPUSH 05/17/24 21:42 1 mg ONCE ONE Administration Morphine Sulfate 4 mg 05/17/24 21:41 05/17/24 21:52 Morphine Sulfate 4 Mg/Ml Cartridge IVPUSH 05/17/24 21:42 4 mg ONCE ONE Administration Protocol Potassium Chloride 20 meq 05/18/24 01:36 05/18/24 02:26 Potassium Chloride Er 20 Meq Tab.Er.Prt PO 05/18/24 01:37 20 meq ONCE ONE Administration Medical Decision Making Medical Decision Making MDM Narrative: 39 yo female with PMH of tubal ligation, HTN here with recurrent one month abdominal pain to the back with n/v. She states she already had US at [facility], [place]. I plan on getting labs, IV morphine for pain, repletion of her K. CT scan to evaluate for colitis, dehydration, lyte abnormality Differential Diagnosis Differential Diagnoses: The differential diagnosis associated with the presentation includes colitis, dehydration, lyte abnormality, pancreatitis, biliary colic, cyclical vomiting Admission/Observation Consideration of admission/observation: Escalation of care including admission/observation considered CT scan negative WBC likely due to vomiting suspect THC induced cyclical vomiting tolerating PO Lab Data [facility] Lab Attestation statement: I reviewed the patient's lab results. K improved 05/17/24 17:39 05/18/24 02:10 Labs: Lab Results 05/17/24 05/18/24 05/18/24 Range/Units 17:39 01:35 02:10 WBC 18.8 H (4.8-10.8) X10*3/uL RBC 5.52 H D (4.20-5.50) X10*6/uL Hgb 15.9 D (12.0-16.0) g/dl Hct 46.3 (37.0-47.0) % MCV 83.9 (80.0-98.0) fL MCH 28.8 (27.0-33.0) pg MCHC 34.3 (31.0-35.0) g/dl RDW 13.9 (11.0-16.0) % Plt Count 491 H (160-400) X10*3/uL MPV 10.0 (9.4-12.3) fL Immature Gran % (Auto) 0.4 (0.0-0.4) % Neut % (Auto) 80.5 H (45-73) % Lymph % (Auto) 12.1 L (20-40) % [place] % (Auto) 6.7 (2-11) % Eos % (Auto) 0.1 (0-4) % Baso % (Auto) 0.2 (0-2) % Lymph # (Auto) 2.3 (1.2-4.9) X10*3/uL [place] # (Auto) 1.3 H (0.1-1.2) X10*3/uL Eos # (Auto) 0.0 (0.0-0.4) X10*3/uL Baso # (Auto) 0.0 (0.0-0.2) X10*3/uL Abs Immat Gran (auto) 0.08 H (0.00-0.03) X10*3/uL Absolute Neuts (auto) 15.1 H (2.0-8.3) x10*3/uL Absolute Nucleated RBC 0.000 (0.0-0.012) X10*3/uL Nucleated RBC % (auto) 0.0 (0.0-0.2) /100WBC Sodium 135 (135-145) mmol/L Potassium 2.7 L* D 3.5 D (3.3-5.1) mmol/L Chloride 98 (96-108) mmol/L Carbon Dioxide 24 (22-29) mmol/L Anion Gap 16 (12-20) BUN 20 H (9-16) mg/dL Creatinine 0.88 (0.5-1.4) mg/dL Estim Creat Clear Calc 96.8 Estimated GFR > 60 Random Glucose 134 H (60-115) mg/dL Calcium 9.8 D (8.4-10.2) mg/dL Magnesium 2.8 H (1.6-2.6) mg/dL Total Bilirubin 1.0 (0.0-1.0) mg/dL AST 48 H (5-31) U/L ALT 42 H (0-31) U/L Alkaline Phosphatase 98 (39-117) U/L Total Protein 8.3 H (6.5-8.0) g/dL Albumin 5.0 (3.5-5.0) g/dL Lipase 12 (8-78) U/L Beta HCG, Quant < 2 mIU/mL Urine Color Yellow Urine Appearance Clear Urine pH 6.5 (5.0-9.0) Ur Specific [place] >= 1.030 H (1.005-1.025) Urine Protein Negative (Neg-Trace) mg/dL Urine Glucose (UA) Negative (Negative) mg/dL Urine Ketones 15 (Negative) mg/dL Urine Blood Negative (Negative) Urine Nitrite Negative (Negative) Ur Leukocyte Esterase Negative (Negative) Urine Opiates Screen POSITIVE H (Not Detect) Ur Buprenorphine Scrn Not Detected (Not Detect) ng/mL Ur Oxycodone Screen Not Detected (Not Detect) ng/mL Urine Methadone Screen Not Detected (Not Detect) ng/mL Urine Fentanyl Screen Not Detected (Not Detect) Ur Barbiturates Screen Not Detected (Not Detect) Ur Phencyclidine Scrn Not Detected (Not Detect) Ur Amphetamines Screen Not Detected (Not Detect) U Benzodiazepines Scrn Not Detected (Not Detect) Urine Cocaine Screen Not Detected (Not Detect) U Marijuana (THC) Screen POSITIVE H (Not Detect) Ethyl Alcohol < 10 mg/dL Influenza Type A (PCR) NEGATIVE (Negative) Influenza Type B (PCR) NEGATIVE (Negative) RSV RNA Qual (PCR) NEGATIVE (Negative) SARS-CoV-2 RNA (RT-PCR) NEGATIVE (Negative) Independent Interpretation I performed an independent interpretation of an: EKG and CT Scan (normal) Interpretation: Rate: 104 Rhythm: sinus tach [place]: normal Normal P waves. Normal ALEX. Normal QRS complex. ST T wave : no YULIANA, inveted t waves II, III, aVF, V1-V6 qTC: 478 prior studies: no prior The study has been interpreted contemporaneously by me. EKG #2 Rate: 98 Rhythm: NSR [place]: normal Normal P waves. Normal ALEX. Normal QRS complex. ST T wave : nonspecific ST T wave changes anterior/lateral leads no YULIANA qTC: 459 prior studies: no acute ischemia The study has been interpreted contemporaneously by me. . Radiology Impression Discussion of test interpretation with radiology: I have reviewed the radiologist's reading. Independent Historian Clinical information obtained from an independent historian. History obtained from or confirmed by: Spouse External Record Review External record reviewed: Outpatient record Prescription Management I considered prescription management with: Pain Medication and Other Critical Care Time Critical Care Time Critical Care Time: Yes Total Critical Care Time: 60 Attestation: repeat labs, IV potassium for repletion x 4, IV morphine with improvement in pain I attest to this time spent taking care of the patient Discharge Plan Discharge Clinical Impression: Acute hypokalemia, Nonspecific ST-T wave electrocardiographic changes Nausea & vomiting Qualifiers: Vomiting type: unspecified Qualified Code(s): R11.2 - Nausea with vomiting, unspecified Patient Disposition: Home, Self-Care Instructions: Hypokalemia (ED), Acute Nausea and Vomiting (ED) Additional Instructions: repeat potassium normal labs reassuring mild bump in liver enzymes very minimal likely fatty liver WBC count mildly elevated from vomiting no more marijuana you may feel sick again over the next month until it is out of your system return for any worsening symptoms or concerns. Prescriptions: New ondansetron 4 mg tablet,disintegrating 4 mg PO Q8H PRN (Reason: nausea and vomiting) Qty: 20 0RF metoclopramide HCl [Reglan] 10 mg tablet 10 mg PO Q6H PRN (Reason: nausea and vomiting) Qty: 20 0RF No Action famotidine 20 mg tablet 20 mg PO BEDTIME Qty: 90 1RF One A Day Women's DHA 28 mg iron- 800 mcg combo pack PO hydrochlorothiazide 25 mg tablet 25 mg PO DAILY Qty: 30 1RF omeprazole 20 mg capsule,delayed release(DR/EC) 20 mg PO DAILY Qty: 30 1RF Stand Alone Forms: Work/School Release Interventions: ED Discharge Assessment Last Done: 05/18/24 03:43 Discharge Date/Time: 05/18/24 03:44 Print Language: Welsh
[2024-05-17 17:43] LABS: MANUAL DIFF FLAG NO
[2024-05-17 17:56] LABS: Basophils Percent Auto 0.2 % (0-2); Eosinophils Percent Auto 0.1 % (0-4); Hematocrit 46.3 % (37.0-47.0); Hemoglobin 15.9 g/dl (12.0-16.0); Imm Gran Abs Auto 0.08 X10*3/uL (0.00-0.03); Imm Gran Pct Auto 0.4 % (0.0-0.4); Lymphocytes Absolute Auto 2.3 X10*3/uL (1.2-4.9); Lymphocytes Percent Auto 12.1 % (20-40); Mean Corpuscular HGB Conc 34.3 g/dl (31.0-35.0); Mean Corpuscular Hemoglobin 28.8 pg (27.0-33.0); Mean Corpuscular Volume 83.9 fL (80.0-98.0); Monocytes Absolute Auto 1.3 X10*3/uL (0.1-1.2); Monocytes Percent Auto 6.7 % (2-11); Neutrophils Absolute Auto 15.1 x10*3/uL (2.0-8.3); Neutrophils Percent Auto 80.5 % (45-73); Platelet Count 491 X10*3/uL (160-400); Red Blood Count 5.52 X10*6/uL (4.20-5.50); Red Cell Distribution Width 13.9 % (11.0-16.0); White Blood Count 18.8 X10*3/uL (4.8-10.8)
[2024-05-17 18:09] LABS: Alanine Aminotransferase 42 U/L (0-31); Alkaline Phosphatase 98 U/L (39-117); Anion Gap 16 (12-20); Aspartate Amino Transferase 48 U/L (5-31); Blood Urea Nitrogen 20 mg/dL (9-16); Calcium 9.8 mg/dL (8.4-10.2); Carbon Dioxide 24 mmol/L (22-29); Chloride 98 mmol/L (96-108); Creatinine Clr Calc Pharmacy 96.8; Estimated Glomerular Filt Rate > 60; Glucose Random 134 mg/dL (60-115); HCG Quantitative < 2 mIU/mL; Magnesium 2.8 mg/dL (1.6-2.6); Potassium 2.7 mmol/L (3.3-5.1); Sodium 135 mmol/L (135-145); Total Protein 8.3 g/dL (6.5-8.0)
[2024-05-17 18:21] LABS: Influenza A PCR NEGATIVE (Negative); Influenza B PCR NEGATIVE (Negative); Resp Syncy Virus RNA Qual PCR NEGATIVE (Negative); SARS COV2 PCR INHOUSE NEGATIVE (Negative)
[2024-05-17 20:28] VITALS: BP 149/84; PULSE 91; RESP 18; TEMP 37; O2SAT 96
[2024-05-17 20:57] VITALS: BP 143/94; PULSE 101; RESP 18; TEMP 36.8; O2SAT 100
--- NOTE | 2024-05-17 21:04 | ECG_ITS ---
Test Reason : ABDOMINAL PAIN Blood Pressure : / mmHG Vent. Rate : 104 BPM Atrial Rate : 104 BPM P-R Int : 134 ms QRS Dur : 088 ms QT Int : 364 ms P-R-T Axes : 011 070 -35 degrees QTc Int : 478 ms Sinus tachycardia Nonspecific ST and T wave abnormality Abnormal ECG No previous ECGs available Referred By: Generic ED Physician Electronically Signed By:TONE SHANNON
[2024-05-17 21:27] LABS: Ethanol < 10 mg/dL; Lipase 12 U/L (8-78)
[2024-05-17 21:52] VITALS: RESP 14
[2024-05-17] MEDS: LORazepam 2 MG/ML VIAL 1 MG IVPUSH (21:52)
[2024-05-17] MEDS: Morphine Sulfate 4 MG/ML CARTRIDGE IVPUSH (21:52)
[2024-05-17] MEDS: iohexoL 350 MG/ML 100 ML INFUS..BTL IV (22:31)
[2024-05-17 23:05] VITALS: BP 129/87; PULSE 96; RESP 12; TEMP 36.4; O2SAT 98
[2024-05-17] MEDS: KCl 40 mEq in 0.9 % Sodium Chl 40 MEQ/1,000 ML IV.SOLN 250 MEQ IVCONT (23:18)
--- NOTE | 2024-05-18 01:48 | ECG_ITS ---
Test Reason : REPEAT Blood Pressure : / mmHG Vent. Rate : 098 BPM Atrial Rate : 098 BPM P-R Int : 130 ms QRS Dur : 086 ms QT Int : 360 ms P-R-T Axes : 000 047 -09 degrees QTc Int : 459 ms Normal sinus rhythm Nonspecific T wave abnormality Abnormal ECG When compared with ECG of 17-MAY-2024 21:11, No significant change was found Referred By: Ernestina Richards Electronically Signed By:TONE SHANNON
[2024-05-18 01:55] LABS: Amphetamine Screen Urine Not Detected (Not Detect); Barbiturates, Urine Not Detected (Not Detect); Benzodiazepines Screen Urine Not Detected (Not Detect); Buprenorphine Scr Not Detected (Not Detect); Cannabinoid Screen Urine POSITIVE (Not Detect); Cocaine Screen Urine Not Detected (Not Detect); Fentanyl, urine Not Detected (Not Detect); Methadone Screen, Urine Not Detected (Not Detect); Opiate Screen Urine POSITIVE (Not Detect); Oxycodone Screen Urine Not Detected (Not Detect); Phencyclidine Screen Urine Not Detected (Not Detect)
[2024-05-18 01:56] LABS: Appearance Urine Clear; Color Urine Yellow; Glucose Urine UA Negative (Negative); Leukocyte Esterase Urine Negative (Negative); Nitrite Urine Negative (Negative); PH 6.5 (5.0-9.0); Specific Gravity - Urine >= 1.030 (1.005-1.025); Urine Blood Negative (Negative); Urine Ketones 15 mg/dL (Negative); Urine Protein Negative (Neg-Trace)
[2024-05-18 02:11] VITALS: BP 131/77; PULSE 102; RESP 14; TEMP 36.7; O2SAT 98
[2024-05-18 02:22] LABS: Potassium 3.5 mmol/L (3.3-5.1)
[2024-05-18] MEDS: Potassium Chloride ER 20 MEQ TAB.ER.PRT PO (02:26)
[2024-05-18 03:43] VITALS: BP 139/83; PULSE 89; RESP 16; TEMP 36.7; O2SAT 98
== END 2024-05-18 03:44 | disposition home or self-care (01) ==
PROVIDERS: Registered Nurse Emergency; Emergency Provider Emergency Medicine; PCP Internal Medicine
DX: R10.2 Pelvic and perineal pain (principal); I10 Essential (primary) hypertension; R11.2 Nausea with vomiting, unspecified; M54.50 Low back pain, unspecified; E87.6 Hypokalemia; R94.31 Abnormal electrocardiogram [ECG] [EKG]; Z51.81 Encounter for therapeutic drug level monitoring; Z79.899 Other long term (current) drug therapy; Z03.818 Encounter for observation for suspected exposure to other biological agents ruled out
CPT/HCPCS: 0241U; 36415; 74177; 80053; 80307; 81003; 83690; 83735; 84132; 84702; 85025; 93005; 96374; 96375; 99284; 99285; J2060; J2270; J3480; Q9967

== ENCOUNTER → 2024-05-17 21:04 | Outpatient (BNV) | payer OTHER, SELFPAY | PROVIDERS: Emergency Provider Emergency Medicine; PCP Internal Medicine; Visit Provider Internal Medicine | DX: R00.0 Tachycardia, unspecified (principal); R94.31 Abnormal electrocardiogram [ECG] [EKG] | CPT/HCPCS: 93010 ==

== ENCOUNTER → 2024-05-18 01:48 | Outpatient (BNV) | payer OTHER, SELFPAY | PROVIDERS: Emergency Provider Emergency Medicine; PCP Internal Medicine; Visit Provider Internal Medicine | DX: R94.31 Abnormal electrocardiogram [ECG] [EKG] (principal) | CPT/HCPCS: 93010 ==

== ENCOUNTER 2024-05-21 13:02 | Emergency (ER) | payer OTHER, SELFPAY ==
--- NOTE | ~2024-05-21 | US_ITS ---
EXAMINATION: US ABDOMEN LIMITED CLINICAL INFORMATION: Right upper quadrant tenderness. COMPARISON: CT abdomen/pelvis dated 05/17/2024. TECHNIQUE: Real-time imaging of the right upper quadrant abdominal viscera. FINDINGS: GALLBLADDER: The gallbladder is physiologically distended without evidence of stones, sludge, polyps, wall thickening or pericholecystic fluid. COMMON BILE DUCT: Normal in caliber measuring 0.3 cm in diameter. US/US abdomen limited IMPRESSION: No cholelithiasis, gallbladder wall thickening, or pericholecystic free fluid to suggest acute cholecystitis. Electronically signed by: Mickey Barger MD 05/21/2024 03:27 PM [facility]
--- NOTE | ~2024-05-21 | XR_ITS ---
EXAMINATION: XR ABDOMEN KUB CLINICAL INDICATION: Abdominal pain. Constipation. COMPARISON: CT abdomen/pelvis dated 05/17/2024. TECHNIQUE: AP views of the abdomen. FINDINGS: Nonobstructive bowel gas pattern. Mild air and stool throughout the bowel. No abnormal soft tissue calcification. Phleboliths within the pelvis. No acute osseous abnormality. There is Castellvi type IIA transitional anatomy at the lumbosacral junction. XR/XR KUB IMPRESSION: Nonobstructive bowel gas pattern. Mild air and stool throughout the bowel. Electronically signed by: Mickey Barger MD 05/21/2024 03:25 PM [facility]
[2024-05-21 13:15] VITALS: BP 138/84; PULSE 107; RESP 20; TEMP 36.3; O2SAT 100; BMI 37.8
--- NOTE | 2024-05-21 13:15 | ED.GENADULT ---
HPI - General Adult General Chief complaint: Abdominal Pain Stated complaint: kidney pain, dehydrated, vomiting Time Seen by Provider: 05/21/24 13:28 Source: patient Mode of arrival: ambulatory Limitations: no limitations History of Present Illness ED Provider: Salma GLORIA narrative: Patient is a 39-year-old female with history of tubal ligation presenting to the ED with complaint of right upper abdominal pain radiating to back, nausea, and vomiting. Seen here on 05/17 for similar symptoms. Denies fevers, hematemesis. Reports has not had a normal bowel movement in the past week. MD complaint: nausea, vomiting, abdominal pain Onset (ago): week(s) Location: abdomen Radiation: back Severity: severe Associated symptoms: nausea/vomiting Related Data Home Medications ?Medication ?Instructions ?Recorded ?Confirmed vits 75-iron 28 mg-folic pkg PO 05/21/23 08/25/23 acid 800 mcg-omega-3 oral combo pack (One A Day Women's DHA) Previous Rx's ?Medication ?Instructions ?Recorded famotidine 20 mg tablet 20 mg PO BEDTIME #90 tabs 04/26/24 hydrochlorothiazide 25 mg tablet 25 mg PO DAILY #30 tabs 04/26/24 omeprazole 20 mg capsule,delayed 20 mg PO DAILY #30 caps 04/26/24 release metoclopramide HCl 10 mg tablet 10 mg PO Q6H PRN nausea and 05/18/24 (Reglan) vomiting #20 tabs ondansetron 4 mg disintegrating 4 mg PO Q8H PRN nausea and 05/18/24 tablet vomiting #20 tabs prochlorperazine 25 mg rectal 25 mg NJ BID PRN nausea and 05/21/24 suppository vomiting #12 ea Allergies Allergy/AdvReac Type Severity Reaction Status Date / Time No Known Allergies Allergy Verified 05/21/24 13:19 Review of Systems Review of Systems: As per HPI Yes all other systems are reviewed and are negative Constitutional: Constitutional: Reports as per HPI [facility] Past Medical History Medical History Morbid obesity with BMI of 40.0-44.9, adult Essential hypertension Gestational diabetes Surgical History S/P LEEP Hx of section Family History Family History Father Alzheimer disease Mother Heart problem High blood pressure Social History Social History Housing: House Alcohol intake: never Patient Tobacco Use Status: Never used Tobacco Tobacco use type: Cigarette Smoked in Last 30 Days: No e-Cigarette/Vaping Use: Never Used Use of substances other than those prescribed or required for medical reasons: Yes Substance Use Type: Marijuana Substance Use Frequency: Monthly Last Used Substance: Weeks (ago) Any prior treatment program specific to substance use: No Advance Directives: No Advance Directives Information Provided: Yes Do you have a plan to hurt others: No Plan service: No Current occupational status: unemployed Current occupational exposures/hazards: No Cognitive needs: No Hearing needs: No Vision needs: No Physical Exam ED Vital Signs: Vital Signs - 24 hr 05/21/24 13:15 05/21/24 14:00 Temperature 97.3 F 97.3 F Pulse Rate 107 H 107 H Respiratory Rate 20 20 Blood Pressure 138/84 138/84 Pulse Oximetry 100 100 Oxygen Delivery Method Room Air Room Air BMI result Body Mass Index 37.8 Vital signs have been reviewed and appear to be correct. Blood pressure normal. Heart rate mildly tachycardic. Respiratory rate normal. Temperature normal. Oxygen saturation normal. Const General: cooperative and no acute distress Nutritional Appearance: obese morbidly obese Orientation/consciousness: oriented to person, oriented to place, oriented to time and patient oriented x3 Limitations: no limitations HENMT Head: Yes normocephalic and Yes atraumatic Ears: external ears normal General nose exam: Normal external nose present Face and sinus: Yes face symmetric Mouth: oropharynx normal and moist mucous membranes Throat: Yes uvula midline Eyes Pupils: Equal, round and reactive pupils present Neck Neck: Yes normal visual inspection and Yes supple Resp Effort & Inspection: normal respiratory effort and able to speak in complete sentences Auscultation: clear to auscultation bilaterally Cardio Rate: regular rate Rhythm: regular rhythm Heart sounds: S1 normal heart sound present and S2 normal heart sound present GI Palpation (GI): Soft to palpation, Tenderness to palpation present (GI) in the RUQ, no guarding and No Rebound tenderness present Auscultation: normoactive bowel sounds General: Yes no CVA tenderness Back/Spine/Pelvis Back: no CVA tenderness Skin General skin exam: elasticity normal and turgor normal Neuro General: oriented to person, oriented to place, oriented to time, patient oriented x3, moves all extremities, no focal motor deficits and CN's II-XI intact bilaterally Cranial nerves: Yes Equal, round and reactive pupils present Cognition (Neuro): normal cognition Extrem General: Yes full ROM, Yes no pedal edema and Yes no calf tenderness Psych Mental Status: mental status grossly normal Affect: normal affect Thought process: Normal thought process present Course Course Course Narrative: This is a Rapid Medical Examination (RME) performed by Rajni Estevez PA-C in triage. Full HPI, ROS, assessment and treatment plan per primary provider in the Main ED. 39 yo female here w/ right flank pain radiating to abdomen. reports assoc N/V. symptoms improve with taking a warm shower, applying heating pad. last smoked marijuana 2 weeks ago. seen here on 05/17/24 w/ white count of 18.8, hypokalemia, and unremarkable CT a/p. Plan: labs, UA Medications Administered Discontinued Medications Generic Name Dose Route Start Last Admin Trade Name Freq PRN Reason Stop Dose Admin Ketorolac Tromethamine 15 mg 05/21/24 14:24 05/21/24 15:06 Ketorolac Tromethamine 15 Mg/Ml Vial IVPUSH 05/21/24 14:25 15 mg ONCE ONE Administration Lorazepam 1 mg 05/21/24 14:24 05/21/24 15:06 Lorazepam 2 Mg/Ml Vial IVPUSH 05/21/24 14:25 1 mg ONCE ONE Administration Medical Decision Making Medical Decision Making [facility] Narrative: Patient is a 39-year-old female with history of tubal ligation presenting to the ED with complaint of right upper abdominal pain radiating to back, nausea, and vomiting. On exam patient is awake, A+Ox3, mildly tachycardic, VS otherwise WNL, afebrile, normal neurological exam without focal deficits, physical exam findings as above. Given reported symptoms and physical exam findings, initial differential includes gastritis, cholecystitis, biliary colic, cyclical vomiting/cannabinoid hyperemesis syndrome, electrolyte abnormality. Labs notable for leukocytosis improved from visit on 05/17, no significant electrolyte abnormalities, mildly elevated LFTs, normal lipase. KUB is without evidence of obstruction, U/S without evidence of acute cholecystitis. My interpretation is in agreement with the radiologist's interpretation. Results discussed with patient and all questions answered. Symptoms improved after medications given in the ED. Will send prescription for prochlorperazine rectal suppositories as patient was discharged with zofran and reglan on 05/17. Discussed with patient to take one medication at a time for her nausea. Follow up with PCP, and likely GI. Return precautions discussed at bedside. Patient verbalized understanding of and agreement with plan. Differential Diagnosis Differential Diagnoses: The differential diagnosis associated with the presentation includes As per [facility] Admission/Observation Consideration of admission/observation: Escalation of care including admission/observation considered Patient would have been admitted to the hospital had their work up had any findings where hospital admission was appropriate and their clinical presentation warranted hospital admission. Lab Data [facility] Lab Attestation statement: I reviewed the patient's lab results. As per [facility] 05/21/24 13:29 05/21/24 13:29 Labs: Lab Results 05/21/24 05/21/24 Range/Units 13:29 13:40 WBC 15.3 H (4.8-10.8) X10*3/uL RBC 5.55 H (4.20-5.50) X10*6/uL Hgb 15.7 (12.0-16.0) g/dl Hct 46.9 (37.0-47.0) % MCV 84.5 (80.0-98.0) fL MCH 28.3 (27.0-33.0) pg MCHC 33.5 (31.0-35.0) g/dl RDW 14.0 (11.0-16.0) % Plt Count 321 D (160-400) X10*3/uL MPV 10.9 (9.4-12.3) fL Immature Gran % (Auto) 0.3 (0.0-0.4) % Neut % (Auto) 78.5 H (45-73) % Lymph % (Auto) 13.5 L (20-40) % Hughes % (Auto) 7.4 (2-11) % Eos % (Auto) 0.1 (0-4) % Baso % (Auto) 0.2 (0-2) % Lymph # (Auto) 2.1 (1.2-4.9) X10*3/uL Hughes # (Auto) 1.1 (0.1-1.2) X10*3/uL Eos # (Auto) 0.0 (0.0-0.4) X10*3/uL Baso # (Auto) 0.0 (0.0-0.2) X10*3/uL Abs Immat Gran (auto) 0.05 H (0.00-0.03) X10*3/uL Absolute Neuts (auto) 12.0 H (2.0-8.3) x10*3/uL Absolute Nucleated RBC 0.000 (0.0-0.012) X10*3/uL Nucleated RBC % (auto) 0.0 (0.0-0.2) /100WBC Sodium 138 (135-145) mmol/L Potassium 3.3 (3.3-5.1) mmol/L Chloride 98 (96-108) mmol/L Carbon Dioxide 26 (22-29) mmol/L Anion Gap 17 (12-20) BUN 14 (9-16) mg/dL Creatinine 0.94 (0.5-1.4) mg/dL Estim Creat Clear Calc 83.2 Estimated GFR > 60 Random Glucose 132 H (60-115) mg/dL Calcium 9.9 (8.4-10.2) mg/dL Magnesium 2.7 H (1.6-2.6) mg/dL Total Bilirubin 0.9 (0.0-1.0) mg/dL AST 35 H (5-31) U/L ALT 42 H (0-31) U/L Alkaline Phosphatase 89 (39-117) U/L Total Protein 7.8 (6.5-8.0) g/dL Albumin 4.6 (3.5-5.0) g/dL Lipase 17 (8-78) U/L Beta HCG, Quant < 2 mIU/mL Urine Color Yellow Urine Appearance Clear Urine pH 7.0 (5.0-9.0) Ur Specific Drewsey 1.020 (1.005-1.025) Urine Protein Trace (Neg-Trace) mg/dL Urine Glucose (UA) Negative (Negative) mg/dL Urine Ketones Trace (Negative) mg/dL Urine Blood Negative (Negative) Urine Nitrite Negative (Negative) Ur Leukocyte Esterase Trace H (Negative) Urine RBC 0-2 (0-2) /HPF Urine WBC 0-5 (0-5) /HPF Ur Squamous Epith Cells 3-5 (0-2) /HPF Urine Bacteria Trace (None Seen) Hyaline Casts 3-5 (0-2) /LPF Independent Interpretation I performed an independent interpretation of an: Plain X-Ray and Ultrasound Interpretation: No evidence of cholecystitis on ultrasound. No evidence of obstruction on KUB. Radiology Impression Discussion of test interpretation with radiology: I have reviewed the radiologist's reading. Radiologist Impression: XR/XR KUB IMPRESSION: Nonobstructive bowel gas pattern. Mild air and stool throughout the bowel. US/US abdomen limited IMPRESSION: No cholelithiasis, gallbladder wall thickening, or pericholecystic free fluid to suggest acute cholecystitis. External Record Review External record reviewed: Inpatient record, Office record and Outpatient record Prescription Management I considered prescription management with: Other Critical Care Time Critical Care Time Critical Care Time: Yes Total Critical Care Time: 37 Attestation: I have personally provided critical care time exclusive of time spent on separately billable procedures. Time includes review of lab data, radiology results, discussion with consultants, and monitoring for potential decompensation. Intervention performed as documented. Discharge Plan Discharge Clinical Impression: Nausea & vomiting Patient Disposition: Home, Self-Care Instructions: Acute Nausea and Vomiting (ED), Cyclic Vomiting Syndrome (ED) Additional Instructions: You were evaluated in the emergency department today for nausea and vomiting, which is likely related to your marijuana use. It can take up to one month for the marijuana to fully clear out of your body. Your labs were reassuring, and your ultrasound and x-ray were normal. Follow up with your primary care provider this week. You are being prescribed rectal prochlorperazine which you can use if unable to tolerate pills by mouth. Do not take this in combination with the other nausea medications you have at home. You may also get relief by applying over the counter capsaicin cream to your abdomen. Return to the ED if you are unable to tolerate fluids by mouth, develop a fever, have worsening pain, or any other new or concerning symptoms. Prescriptions: New prochlorperazine 25 mg suppository 25 mg NJ BID PRN (Reason: nausea and vomiting) Qty: 12 0RF No Action famotidine 20 mg tablet 20 mg PO BEDTIME Qty: 90 1RF ondansetron 4 mg tablet,disintegrating 4 mg PO Q8H PRN (Reason: nausea and vomiting) Qty: 20 0RF metoclopramide HCl [Reglan] 10 mg tablet 10 mg PO Q6H PRN (Reason: nausea and vomiting) Qty: 20 0RF One A Day Women's DHA 28 mg iron- 800 mcg combo pack PO hydrochlorothiazide 25 mg tablet 25 mg PO DAILY Qty: 30 1RF omeprazole 20 mg capsule,delayed release(DR/EC) 20 mg PO DAILY Qty: 30 1RF Referrals: [facility] [Provider Group] Print Language: Egyptian
[2024-05-21 13:34] LABS: MANUAL DIFF FLAG NO
[2024-05-21 13:36] LABS: Basophils Percent Auto 0.2 % (0-2); Eosinophils Percent Auto 0.1 % (0-4); Hematocrit 46.9 % (37.0-47.0); Hemoglobin 15.7 g/dl (12.0-16.0); Imm Gran Abs Auto 0.05 X10*3/uL (0.00-0.03); Imm Gran Pct Auto 0.3 % (0.0-0.4); Lymphocytes Absolute Auto 2.1 X10*3/uL (1.2-4.9); Lymphocytes Percent Auto 13.5 % (20-40); Mean Corpuscular HGB Conc 33.5 g/dl (31.0-35.0); Mean Corpuscular Hemoglobin 28.3 pg (27.0-33.0); Mean Corpuscular Volume 84.5 fL (80.0-98.0); Mean Platelet Volume 10.9 fL (9.4-12.3); Monocytes Absolute Auto 1.1 X10*3/uL (0.1-1.2); Monocytes Percent Auto 7.4 % (2-11); Neutrophils Percent Auto 78.5 % (45-73); Platelet Count 321 X10*3/uL (160-400); Red Blood Count 5.55 X10*6/uL (4.20-5.50); White Blood Count 15.3 X10*3/uL (4.8-10.8)
[2024-05-21 13:46] LABS: Appearance Urine Clear; Color Urine Yellow; Glucose Urine UA Negative (Negative); Leukocyte Esterase Urine Trace (Negative); Nitrite Urine Negative (Negative); UMIC TRIGGER UACC YES; Urine Blood Negative (Negative); Urine Ketones Trace mg/dL (Negative); Urine Protein Trace mg/dL (Neg-Trace)
[2024-05-21 13:49] LABS: Bacteria Urine Trace (None Seen); RBC Urine 0-2 /HPF (0-2); WBC Urine 0-5 /HPF (0-5)
[2024-05-21 14:00] VITALS: BP 138/84; PULSE 107; RESP 20; TEMP 36.3; O2SAT 100
[2024-05-21 14:00] LABS: Alanine Aminotransferase 42 U/L (0-31); Albumin Level 4.6 g/dL (3.5-5.0); Alkaline Phosphatase 89 U/L (39-117); Anion Gap 17 (12-20); Aspartate Amino Transferase 35 U/L (5-31); Bilirubin Total 0.9 mg/dL (0.0-1.0); Blood Urea Nitrogen 14 mg/dL (9-16); Calcium 9.9 mg/dL (8.4-10.2); Carbon Dioxide 26 mmol/L (22-29); Chloride 98 mmol/L (96-108); Creatinine Clr Calc Pharmacy 83.2; Estimated Glomerular Filt Rate > 60; Glucose Random 132 mg/dL (60-115); Lipase 17 U/L (8-78); Magnesium 2.7 mg/dL (1.6-2.6); Potassium 3.3 mmol/L (3.3-5.1); Sodium 138 mmol/L (135-145); Total Protein 7.8 g/dL (6.5-8.0)
[2024-05-21 14:08] LABS: HCG Quantitative < 2 mIU/mL
--- NOTE | 2024-05-21 14:13 | PC.NURSE ---
Patient reports ongoing vomiting and nausea, she is becoming sore in chest from vomiting. medications provided are not helping even though she understand it may be from marijuana use weeks ago.Pt tearful and still vomiting bile.
[2024-05-21] MEDS: Ketorolac Tromethamine 15 MG/ML VIAL IVPUSH (15:06)
[2024-05-21] MEDS: LORazepam 2 MG/ML VIAL 1 MG IVPUSH (15:06)
[2024-05-21 15:46] VITALS: BP 128/79; PULSE 95; RESP 16; TEMP 36.6; O2SAT 100
== END 2024-05-21 15:51 | disposition home or self-care (01) ==
PROVIDERS: Physician Assistant Medical; Emergency Provider Emergency Medicine; PCP Internal Medicine
DX: R11.2 Nausea with vomiting, unspecified (principal); R10.11 Right upper quadrant pain; F12.90 Cannabis use, unspecified, uncomplicated; I10 Essential (primary) hypertension; E66.01 Morbid (severe) obesity due to excess calories; Z68.37 Body mass index [BMI] 37.0-37.9, adult
CPT/HCPCS: 36415; 74018; 76705; 80053; 81001; 83690; 83735; 84702; 85025; 96374; 96375; 99284; J1885; J2060

== ENCOUNTER 2024-05-24 09:35 | Outpatient (AMB) | payer OTHER, SELFPAY ==
[2024-05-24 09:45] VITALS: BP 110/80; PULSE 93; O2SAT 98; BMI 36.9
--- NOTE | 2024-05-24 09:45 | A.OFFPC_ITS ---
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 Accompanied by: Self / Same As Patient Allergies No Known Allergies Allergy (Verified 05/24/24 09:59) Medication List - Last Reconciled 05/24/24 by Peng Muro MD famotidine 20 mg PO BEDTIME hydrochlorothiazide 25 mg PO DAILY metoclopramide HCl (Reglan) 10 mg PO Q6H PRN omeprazole 20 mg PO DAILY ondansetron 4 mg PO Q8H PRN [id number] fum-folic ac-om3 28 mg iron- 800 mcg (One A Day Women's DHA) pkgs PO prochlorperazine 25 mg CA BID PRN Tobacco use date assessed: 05/24/24 Dental Screening Dental Screen Date: 05/24/24 Did you have a dental visit in the last 12 months?: No Did you have a dental problem in the last 6 months where you did not have access to dental care?: No Was dental information given to patient?: No HPI Follow Up HPI Details Patient comes in today complaining of severe abdominal pain, nausea, and vomiting, which she states started about 3 weeks ago States that her abdominal pain is predominantly located in the epigastric and mid-abdominal area and she feels like the pain radiates from the back at times Reports (+) associated sweating with her abdominal pain, especially upon waking, and notes that what she throws up appears mucus-like in consistency Patient reports difficulty in keeping down food, including light meals and liquids like soup or broth, as all intake results in vomiting She also relates experiencing a constant sharp pain, particularly in the ovarian region States that she was diagnosed with a small ovarian cyst in the past She has been taking Famotidine 20 mg QD and Omeprazole 20 mg QD, both of which have not helped CT of the abdomen done at the ER last week only revealed (+) small hepatic cyst and did not show any findings to help explain her current symptoms Abdominal US and KUB done a few days later also both came out normal Patient admits that she used to smoke marijuana recreationally but she stopped using it about a month ago Patient states that she also has not really had any bowel movements lately, which may be secondary to reduced food intake over the past few weeks due to her symptoms Her imaging studies done recently did not show any evidence of constipation or bowel obstruction She denies any fever, headaches or dizziness Denies any chest pains, no increased shortness of breath PFSH Medical History (Updated 05/30/24 @ 02:29 by Peng Muro MD) Obesity (BMI 30-39.9) Morbid obesity with BMI of 40.0-44.9, adult Essential hypertension Gestational diabetes Surgical History S/P LEEP Hx of section Family History Father Alzheimer disease Mother Heart problem High blood pressure Social History Housing: House Alcohol intake: never Patient Tobacco Use Status: Never used Tobacco Tobacco use type: Cigarette e-Cigarette/Vaping Use: Never Used Substance Use Type: Marijuana service: No Current occupational status: unemployed Current occupational exposures/hazards: No Cognitive needs: No Hearing needs: No Vision needs: No Questionnaire PHQ-9 Over the last 2 weeks, how often have you been bothered by any of the following problems? 1. Little interest or pleasure in doing things: not at all 2. Feeling down, depressed, or hopeless: not at all 3. Trouble falling or staying asleep, or sleeping too much: not at all 4. Feeling tired or having little energy: not at all 5. Poor appetite or overeating: not at all 6. Feeling bad about yourself - or that you are a failure or have let yourself or your family down: not at all 7. Trouble concentrating on things, such as reading the newspaper or watching television: not at all 8. Moving or speaking so slowly that other people could have noticed. Or the opposite - being so fidgety or restless that you have been moving around a lot more than usual: not at all 9. Thoughts that you would be better off or of hurting yourself in some way: not at all Total score: 0 Depression Screening Interpretation: Negative Depression Screening Done: Yes 19189 - PHQ-9 Billing: Yes Source: Developed by Drs. Silvestre Meier, Ran Mcdaniel and colleagues, with an educational ismael from [employer]. Thrive Questionnaire Date Thrive assessed: 05/24/24 I am a: Patient What is your living situation today?: I have a steady place to live Within the past 12 months, did the food you bought not last and you didn't have the money to get more?: Never true Within the past 12 months, did you worry whether your food would run out before you got money to buy more?: Never true Do you have trouble paying for medicines?: No Do you have trouble getting transportation to medical appointments?: No Do you have trouble paying your heating and electricity bill?: No Do you have trouble taking care of your child, family member or friend?: No Do you have trouble with day-to-day activities such as bathing, preparing meals, shopping, managing finances, etc.?: No Are you currently unemployed and looking for a job?: No Are you interested in more education?: No Please select the resources that you would like help with: None Currently or been in a relationship where the following occur: No concerns reported THRIVE Score: 0 AUDIT C Alcohol Use Questionnaire (AUDIT-C) 1. How often do you have a drink containing alcohol?: Never 3. How often do you have six or more drinks on one occasion?: Never Total Score: 0 Score Reviewed/Action Taken: Yes ENZO-7 AMB Questionnaire ENZO-7 Date ENZO - 7 assessed: 05/24/24 Feeling nervous, anxious, or on edge: 0 = Not at all Not being able to stop or control worryin = Not at all Worrying too much about different things: 0 = Not at all Trouble relaxin = Not at all Being so restless that it is hard to sit still: 0 = Not at all Becoming easily annoyed or irritable: 0 = Not at all Feeling afraid as if something awful might happen: 0 = Not at all Total ENZO-7 score (0-4 normal; 5-9 mild; 10-14 moderate; 15-21 severe): 0 Source: Developed by Julieta Self Kurt Kroenke and colleagues, with an educational ismael from [employer]. Review of Systems Const Denies chills, Reports fatigue, Denies fever(s), Denies headache(s), Reports poor appetite (due to her abdominal pain and recurrent nausea/vomiting lately) and Reports weight loss (at least 7 to 8 pounds over the past few weeks) ENT Denies dysphagia, Denies dizziness, Denies otalgia, Denies headache(s), Denies neck pain, Denies odynophagia and Denies sore throat Card Denies chest pain, Denies palpitations and Denies dyspnea Resp Denies chest congestion, Denies cough and Denies dyspnea GI Reports abdominal pain (recurrent, over the past 3 weeks - see HPI), Denies constipation, Denies dysphagia, Denies heartburn, Denies diarrhea, Reports nausea (recurrent/frequent), Denies odynophagia and Reports vomiting (at times) Denies difficulty voiding, Denies nocturia, Denies dysuria and Denies urinary urgency Musc Reports back pain (feels like her abdominal pain radiates from her back at times) and Denies neck pain Skin/Breast Denies rash Neuro Denies dizziness and Denies headache(s) Endo Reports fatigue and Denies palpitations Physical exam (Primary Care) Vital Signs: Last Vital Signs Pulse 93 05/24/24 09:45 BP 110/80 05/24/24 09:45 Pulse Ox 98 05/24/24 09:45 Oxygen Delivery Method Room Air 05/24/24 09:45 BMI result Body Mass Index 36.9 Tobacco/Smoking Status: Tobacco use Status Tobacco use date assessed 05/24/24 05/24/24 09:50 Patient Tobacco Use Status Never used Tobacco 05/24/24 09:50 Tobacco use type Cigarette 05/24/24 09:50 e-Cigarette/Vaping Use Never Used 05/24/24 09:50 PHQ-9: PHQ-9 Score PHQ-9: Total score 0 05/24/24 10:05 Depression Screening Interpretation: Negative Thrive Assessment: Date of Thrive Assessment Date Thrive assessed 05/24/24 05/24/24 09:50 Currently or been in a relationship where the following occur: No concerns reported Const General: no acute distress and alert HENMT Throat: Yes posterior oropharynx normal and Yes tonsils normal (no TP congestion) Neck Neck: Yes supple and No lymphadenopathy Thyroid: Thyroid normal Resp Auscultation: clear to auscultation bilaterally, no rales and no wheezes Cardio Rate: regular rate Rhythm: regular rhythm Heart sounds: no murmurs GI Palpation (GI): Tenderness to palpation present (GI) in the epigastrum, no guarding, not rigid and No Rebound tenderness present Auscultation: normal bowel sounds General: Yes no CVA tenderness Back/Spine/Pelvis Back: no CVA tenderness Thoracic/Lumbar Spine: No lumbar spinal tenderness Skin Rashes: no rashes Extrem General: Yes no clubbing, cyanosis or edema Coding Level of Care Code Est Pt Level 4 (00472) Diagnoses Nausea and vomiting, unspecified vomiting type R11.2 Vomiting type: unspecified Essential hypertension I10 Obesity (BMI 30-39.9) E66.9 Additional Codes PHQ-9 - 18461 - PHQ-9 Billing: Yes ([id number]) Assessment & Plan Assessment & Plan (1) Nausea and vomiting: Code(s): R11.2 - Nausea with vomiting, unspecified Category: Medical Qualifiers: Vomiting type: unspecified Qualified Code(s): R11.2 - Nausea with vomiting, unspecified Plan: Patient recently had imaging studies (CT, KUB and US) done, all of which were unrevealing and do not help explain her symptoms Suspect that her symptoms are likely due to gastritis and/or marijuana-induced cyclic vomiting syndrome Will increase her Famotidine to 40 mg QD and her Omeprazole to 40 mg QD Will start her on Ondansetron oral-disintegrating tablets 4 mg Q 8 hours PRN to help with her nausea/vomiting for now Will also refer her for urgent GI consultation / further evaluation - she will likely require EGD for further evaluation especially if her symptoms still do not improve with the adjustment in dosages of her current Rx (2) Essential hypertension: Code(s): I10 - Essential (primary) hypertension Category: Medical Plan: Reinforced low sodium diet - goal is systolic BP of 120 mm or less Continue HCTZ 25 mg QD (3) Obesity (BMI 30-39.9): Code(s): E66.9 - Obesity, unspecified Category: Medical Plan: Reinforced diet/exercise as tolerated/lose weight - she has lost about 7 to 8 pounds over the past few weeks due to her recent GI symptoms Plan Follow up in 3 months Orders: Referrals Gastroenterology Referral R10.9 - Unspecified abdominal pain, R11.2 - Nausea with vomiting, unspecified Medications: New ondansetron 4 mg PO Q8H 10 days PRN 30 tabs 1RF nausea and vomiting Changed From famotidine 20 mg PO BEDTIME 90 tabs 1RF R10.9 - Unspecified abdominal pain To famotidine 40 mg PO BEDTIME 30 tabs 1RF R10.9 - Unspecified abdominal pain From omeprazole 20 mg PO DAILY 30 caps 1RF K29.70 - Gastritis, unspecified, without bleeding, R10.9 - Unspecified abdominal pain To omeprazole 40 mg PO DAILY 30 days 30 caps 1RF K29.70 - Gastritis, unspecified, without bleeding, R10.9 - Unspecified abdominal pain Discontinued prochlorperazine Discontinued Reason: Patient Completed Course 25 mg CA BID PRN 12 ea 0RF nausea and vomiting metoclopramide HCl Discontinued Reason: Doctor's Order 10 mg PO Q6H PRN 20 tabs 0RF nausea and vomiting ondansetron Discontinued Reason: Duplicate 4 mg PO Q8H PRN 20 tabs 0RF nausea and vomiting
== END 2024-05-24 10:15 | disposition home or self-care (01) ==
PROVIDERS: PCP Internal Medicine; Visit Provider Internal Medicine
DX: R11.2 Nausea with vomiting, unspecified (principal); I10 Essential (primary) hypertension; E66.9 Obesity, unspecified; Z68.36 Body mass index [BMI] 36.0-36.9, adult

== ENCOUNTER → 2024-05-24 09:35 | Outpatient (BNVA) | payer OTHER, SELFPAY | PROVIDERS: PCP Internal Medicine; Visit Provider Internal Medicine | DX: R11.2 Nausea with vomiting, unspecified (principal); I10 Essential (primary) hypertension; E66.9 Obesity, unspecified | CPT/HCPCS: 96127; 99212 ==